=== PATIENT | female | born 1970 | race Caucasian/White ===

== ENCOUNTER 2017-06-11 20:35 | Emergency (ER) | payer OTHER ==
[~2017-06-11] VITALS: Ht 165.1 cm; Wt 68.0 kg
[~2017-06-11 20:35] MED LIST: CLARITIN10 MG PO; LO LOESTRIN FE1 EACH PO; MULTI FOR HER1 EACH PO; OMEPRAZOLE40 MG PO
[2017-06-11 22:21] VITALS: BP 133/55
== END 2017-06-11 22:25 | disposition home or self-care (01) ==
LOC: ER 20:35
DX: R50.9 Fever, unspecified (principal); R10.9 Unspecified abdominal pain; R11.2 Nausea with vomiting, unspecified; Z88.0 Allergy status to penicillin; Z88.2 Allergy status to sulfonamides

== ENCOUNTER → 2021-04-03 | Outpatient (CLI) | payer BC | LOC: BC 11:04 | PROVIDERS: ATTEND Obstetrics & Gynecology | DX: Z12.31 Encounter for screening mammogram for malignant neoplasm of breast (principal) ==